=== PATIENT | female | born 1975 | race African-American/Black ===

== ENCOUNTER 2018-11-27 08:31 | Emergency (ER) | payer SELFPAY ==
[~2018-11-27] VITALS: Ht 144.8 cm; Wt 63.5 kg
[2018-11-27] MEDS ORDERED: LISI1TAB20 PO (09:24)
[2018-11-27] MEDS ORDERED: CYCL-331 PO (09:24)
[2018-11-27] MEDS ORDERED: PRED20TA PO (09:24)
--- NOTE | 2018-11-27 09:24 | PHYS DOC ---
Past History Past Medical History: Hypertension Past Surgical History: Hysterectomy Alcohol Use: None Drug Use: None Adult General Chief Complaint Chief Complaint: BACK PAIN - NO INJURY HPI HPI 43-year-old female presents with back pain. She has had nearly constant back pain for the last 2 weeks. She believes it started when she was lifting boxes at work. She has not been lifting heavy things recently, but still has significant stiffness when she gets up in the morning as well as with movement. She feels like there is a tightness throughout her back from her neck down to her lumbar. She denies any falls or trauma. She has tried NSAIDs and aspirin without relief. She denies fever or chills. No history of inflammatory disorders. No known family history of inflammatory disorders. The patient also has high blood pressure. She has not been getting her medication because she changed jobs and lost her insurance temporarily. Review of Systems Review of Systems Constitutional: Denies fever or chills [] Eyes: Denies change in visual acuity, redness, or eye pain [] HENT: Denies nasal congestion or sore throat [] Respiratory: Denies cough or shortness of breath [] Cardiovascular: No additional information not addressed in HPI [] GI: Denies abdominal pain, nausea, vomiting, bloody stools or diarrhea [] : Denies dysuria or hematuria [] Musculoskeletal: Back pain[] Integument: Denies rash or skin lesions [] Neurologic: Denies headache, focal weakness or sensory changes [] Endocrine: Denies polyuria or polydipsia [] All other systems were reviewed and found to be within normal limits, except as documented in this note. Physical Exam Physical Exam Constitutional: Well developed, well nourished, no acute distress, non-toxic appearance. [] HENT: Normocephalic, atraumatic, bilateral external ears normal, oropharynx moist, no oral exudates, nose normal. [] Eyes: PERRLA, EOMI, conjunctiva normal, no discharge. [] Neck: Normal range of motion, no tenderness, supple, no stridor. [] Cardiovascular:Heart rate regular rhythm, no murmur [] Lungs & Thorax: Bilateral breath sounds clear to auscultation [] Abdomen: Bowel sounds normal, soft, no tenderness, no masses, no pulsatile masses. [] Skin: Warm, dry, no erythema, no rash. [] Back: Muscle spasm and tightness throughout the thoracic and lumbar spine, worse on the right.[] Extremities: No tenderness, no cyanosis, no clubbing, ROM intact, no edema. [] Neurologic: Alert and oriented X 3, normal motor function, normal sensory function, no focal deficits noted. [] Psychologic: Affect normal, judgement normal, mood normal. [] Current Patient Data Vital Signs Vital Signs Date Time Temp Pulse Resp B/P (MAP) Pulse Ox O2 Delivery O2 Flow Rate FiO2 11/27/18 08:54 98.0 80 18 100 Room Air EKG EKG [] Radiology/Procedures Radiology/Procedures [] Course & Med Decision Making Course & Med Decision Making Pertinent Labs and Imaging studies reviewed. (See chart for details) For the patient's discomfort, will try 5 days of prednisone 60 mg daily. I will also discharge her with a prescription for Flexeril and lisinopril/ hydrochlorothiazide 20/25. If this does not significantly help, I have advised that she consider physical therapy. She is stable for discharge at this time. [] Dragon Disclaimer Dragon Disclaimer This electronic medical record was generated, in whole or in part, using a voice recognition dictation system. Departure Departure: Impression: Primary Impression: Thoracic back pain Additional Impression: Lumbar back pain Disposition: HOME, SELF-CARE Condition: STABLE Referrals: PCP,HILARIO (PCP) Patient Instructions: Back Pain, Adult, [id number] Scripts Prednisone (PREDNISONE) 20 Mg Tablet 2 TAB PO DAILY for back pain for 5 Days, #10 TAB Prov: TING ROTHMAN DO 11/27/18 Cyclobenzaprine Hcl (CYCLOBENZAPRINE HCL) 10 Mg Tablet 1 TAB PO TID for back muscle spasms, #30 TAB Prov: TING ROTHMAN DO 11/27/18 Lisinopril/Hydrochlorothiazide (LISINOPRIL-HCTZ 20-25 MG TAB) 1 Each Tablet 1 TAB PO DAILY for Hypertension, #30 TAB 0 Refills Prov: TING ROTHMAN DO 11/27/18 Problem Qualifiers Primary Impression: Thoracic back pain Chronicity: acute Back pain laterality: bilateral Qualified Codes: M54.6 - Pain in thoracic spine TING ROTHMAN DO Nov 27, 2018 09:24
[2018-11-27 09:39] VITALS: BP 202/121
== END 2018-11-27 09:43 | disposition home or self-care (01) ==
LOC: ER 08:31
DX: M54.5 Low back pain (principal); M54.6 Pain in thoracic spine; M62.830 Muscle spasm of back; I10 Essential (primary) hypertension; Z90.710 Acquired absence of both cervix and uterus
CPT/HCPCS: 99283